=== PATIENT | female | born 1980 | race Caucasian/White ===

== ENCOUNTER 2016-08-22 08:47 | Emergency (ER) | payer OTHER ==
--- NOTE | 2016-08-22 09:44 | ED Physician Documentation ---
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 Review of Systems Constitutional: reports: Fever, Chills, Myalgias, Fatigue Eyes: denies: Decreased vision Ears: denies: Ear pain Nose: denies: Rhinorrhea / runny nose, Congestion Throat: reports: Sore throat Cardiac: denies: Chest pain / pressure, Palpitations Respiratory: denies: Dyspnea, Cough GI: reports: Nausea, Vomiting. denies: Abdominal Pain : denies: Dysuria, Frequency Skin: denies: Rash Musculoskeletal: denies: Neck pain, Back pain, Extremity pain Neurologic: reports: Generalized weakness. denies: Focal weakness, Numbness PD PAST MEDICAL HISTORY - Past Medical History Past Medical History: Yes Respiratory: Asthma - Past Surgical History Past Surgical History: Yes General: Cholecystectomy - Present Medications Home Medications: Ambulatory Orders Medication Instructions Recorded Confirmed Vit Calc,Iron,Folic 1 tab PO DAILY 08/22/16 08/22/16 [ Vitamins] - Allergies Allergies/Adverse Reactions: Allergies Allergy/AdvReac Type Severity Reaction Status Date / Time No Known Drug Allergies Allergy Verified 08/22/16 08:52 - Social History Does the pt smoke?: No Smoking Status: Never smoker Does the pt drink ETOH?: No Does the pt have substance abuse?: No PD ED PE NORMAL - Vitals Vital signs reviewed: Yes (normal ) - General General: Alert and oriented X 3, Well developed/nourished, Other (The patient is in tears not feeling well ) - HEENT HEENT: Atraumatic, PERRL, EOMI, Ears normal, Other (mucous membranes are dry. The tonsils are with minimal inflamation and no exudate. ) - Neck Neck: Supple, no meningeal sign, No bony TTP - Cardiac Cardiac: RRR, No murmur - Respiratory Respiratory: No respiratory distress, Clear bilaterally - Abdomen Abdomen: Soft, Non tender - Back Back: No CVA TTP, No spinal TTP - Derm Derm: Normal color, Warm and dry, No rash - Extremities Extremities: No deformity, No edema - Neuro Neuro: No motor deficit, No sensory deficit, Normal speech Results - Vitals Vitals: Vital Signs - 24 hr 08/22/16 08/22/16 08/22/16 08:50 12:02 14:09 Temperature 36.1 C L 37.1 C 36.3 C L Heart Rate 78 86 111 H Respiratory 18 20 20 Rate Blood Pressure 99/71 94/55 L 117/72 O2 Saturation 99 100 100 Oxygen O2 Source Room air - Labs Labs: Laboratory Tests 08/22/16 08/22/16 08/22/16 10:00 10:00 10:00 WBC 9.7 RBC 5.19 Hgb 15.3 Hct 44.8 MCV 86.3 MCH 29.5 MCHC 34.2 RDW 12.0 Plt Count 214 MPV 7.6 L Neut # 8.3 H Lymph # 1.0 L [place] # 0.4 Eos # 0.0 Baso # 0.0 Absolute Nucleated RBC 0.00 Nucleated RBCs 0.0 Sodium 136 Potassium 3.6 Chloride 103 Carbon Dioxide 23 Anion Gap 10.0 BUN 12 Creatinine 0.5 Estimated GFR (MDRD) 138 Glucose 84 Calcium 9.5 Total Bilirubin 1.2 H AST 22 ALT 22 Alkaline Phosphatase 55 Total Protein 8.5 H Albumin 4.6 Globulin 3.9 Albumin/Globulin Ratio 1.2 Lipase 22 Urine Color Urine Clarity Urine pH Ur Specific [place] Urine Protein Urine Glucose (UA) Urine Ketones Urine Occult Blood Urine Nitrite Urine Bilirubin Urine Urobilinogen Ur Leukocyte Esterase Urine RBC Urine WBC Ur Squamous Epith Cells Urine Bacteria Ur Microscopic Review Urine Culture Comments Infectious [place] Assay NEGATIVE Group A Strep Rapid 08/22/16 08/22/16 11:12 11:15 WBC RBC Hgb Hct MCV MCH MCHC RDW Plt Count MPV Neut # Lymph # [place] # Eos # Baso # Absolute Nucleated RBC Nucleated RBCs Sodium Potassium Chloride Carbon Dioxide Anion Gap BUN Creatinine Estimated GFR (MDRD) Glucose Calcium Total Bilirubin AST ALT Alkaline Phosphatase Total Protein Albumin Globulin Albumin/Globulin Ratio Lipase Urine Color DARK YELLOW Urine Clarity CLEAR Urine pH 6.5 Ur Specific [place] 1.020 Urine Protein 30 H Urine Glucose (UA) NEGATIVE Urine Ketones >=80 H Urine Occult Blood TRACE-INTA Urine Nitrite NEGATIVE Urine Bilirubin NEGATIVE Urine Urobilinogen 0.2 (NORMAL) Ur Leukocyte Esterase NEGATIVE Urine RBC 0-5 Urine WBC 0-3 Ur Squamous Epith Cells MOD Squamous H Urine Bacteria Moderate H Ur Microscopic Review INDICATED Urine Culture Comments NOT INDICATED Infectious [place] Assay Group A Strep Rapid Negative Procedures - IVC sono (time) 0940 Bedside IVC sono: IVC measures (cm) (1.14), IVC collapsed c insp (cm) (complete) , Dehydration PD MEDICAL DECISION MAKING - ED course Complexity details: reviewed results, re-evaluated patient, considered differential, d/w patient ED course: 36-year-old female 12 weeks with sore throat aches and weakness. She has had nausea and vomiting and rapid strep is negative examination of the oropharynx and ears is unremarkable and she does appear dehydrated on interrogation of the inferior vena cava. Here in the emergency department she is administered 2 L of normal saline a Monospot is negative as is a repeat strep screen. Departure - Departure Disposition: 01 Home, Self Care Clinical Impression: Dehydration Condition: Stable Instructions: ED Dehydration Follow-Up: Your, doctor [Other] Discharge Date/Time: 08/22/16 14:10
[2016-08-22] MEDS ORDERED: SODIUM CHLORIDE 0.9% 1,000 ML IV ONE ×2 (09:47→12:56)
[2016-08-22 10:12] LABS: BASOPHILS % (AUTO) 0.4 %; EOSINOPHILS % (AUTO) 0.2 %; HCT - HEMATOCRIT 44.8 % (37.0-47.0); HGB - HEMOGLOBIN 15.3 g/dL (12.0-16.0); MEAN CORPUSCULAR HEMOGLOBIN 29.5 pg (27.0-31.0); MEAN CORPUSCULAR HGB CONC 34.2 g/dL (32.0-36.0); MEAN CORPUSCULAR VOLUME 86.3 fL (81.0-99.0); MEAN PLATELET VOLUME 7.6 fL (7.9-10.8); MONOCYTES # (AUTO) 0.4 10^3/uL (0.0-1.0); MONOCYTES % (AUTO) 3.7 %; NEUTROPHILS # (AUTO) 8.3 10^3/uL (1.5-6.6); NEUTROPHILS % (AUTO) 85.7 %; RED BLOOD COUNT 5.19 10^6/uL (4.20-5.40); UNCORRECTED WHITE BLOOD COUNT 9.7 x10^3/uL; WHITE BLOOD COUNT 9.7 x10^3/uL (4.8-10.8)
[2016-08-22 10:29] LABS: ALBUMIN/GLOBULIN RATIO 1.2 (1.0-2.2); BILIRUBIN,TOTAL 1.2 mg/dL (0.2-1.0); CALCIUM 9.5 mg/dL (8.5-10.3); CREATININE 0.5 mg/dL (0.4-1.0); POTASSIUM 3.6 mmol/L (3.5-5.0); TOTAL PROTEIN 8.5 g/dL (6.7-8.2)
[2016-08-22 10:42] LABS: MONO NEG QC NEGATIVE (Negative); MONO POS QC POSITIVE (Positive)
[2016-08-22 11:26] LABS: PH,URINE 6.5 PH (5.0-7.5)
[2016-08-22 11:33] LABS: BILIRUBIN,URINE NEGATIVE (NEGATIVE); UA w/ MICROSCOPIC CHARGE YES
[2016-08-22 11:41] LABS: UR CULTURE IF IND NOT INDICATED; WBC,URINE 0-3 /HPF (0-5)
[2016-08-22 11:45] LABS: RAPID STREP SCREEN REAGENT QC YELLOW (YELLOW)
[2016-08-22 14:09] VITALS: BP 117/72
== END 2016-08-22 14:10 | disposition home or self-care (01) ==
LOC: ED 08:47
DX: O99.281 Endocrine, nutritional and metabolic diseases complicating pregnancy, first trimester (principal); E86.0 Dehydration; O99.511 Diseases of the respiratory system complicating pregnancy, first trimester; J02.9 Acute pharyngitis, unspecified; Z3A.12 12 weeks gestation of pregnancy
CPT/HCPCS: 36415; 80053; 81001; 81003; 83690; 85025; 86308; 87070; 87086; 87430; 96360; 96361; 99284

== ENCOUNTER 2016-08-30 22:00 | Emergency (ER) | payer OTHER ==
[2016-08-30 22:28] LABS: BILIRUBIN,URINE NEGATIVE (NEGATIVE); PH,URINE 6.5 PH (5.0-7.5)
[2016-08-30 22:29] LABS: UA CHARGE (STRIP ONLY) YES; UR CULTURE IF IND NOT INDICATED
[2016-08-30] MEDS ORDERED: ONDANSETRON 4 MG/2 ML VIAL ONE (22:42)
[2016-08-30] MEDS ORDERED: SODIUM CHLORIDE 0.9% 1,000 ML IV ONE ×2 (22:42→23:14)
[2016-08-30 22:51] LABS: BASOPHILS % (AUTO) 0.6 %; EOSINOPHILS # (AUTO) 0.1 10^3/uL (0.0-0.7); EOSINOPHILS % (AUTO) 0.9 %; HCT - HEMATOCRIT 39.5 % (37.0-47.0); HGB - HEMOGLOBIN 13.8 g/dL (12.0-16.0); LYMPHOCYTES # (AUTO) 1.8 10^3/uL (1.5-3.5); LYMPHOCYTES % (AUTO) 22.4 %; MEAN CORPUSCULAR HGB CONC 34.9 g/dL (32.0-36.0); MEAN CORPUSCULAR VOLUME 85.9 fL (81.0-99.0); MEAN PLATELET VOLUME 7.9 fL (7.9-10.8); MONOCYTES # (AUTO) 0.6 10^3/uL (0.0-1.0); MONOCYTES % (AUTO) 7.3 %; NEUTROPHILS # (AUTO) 5.6 10^3/uL (1.5-6.6); NEUTROPHILS % (AUTO) 68.8 %; RED BLOOD COUNT 4.59 10^6/uL (4.20-5.40); RED CELL DISTRIBUTION WIDTH 11.8 % (12.0-15.0); UNCORRECTED WHITE BLOOD COUNT 8.2 x10^3/uL; WHITE BLOOD COUNT 8.2 x10^3/uL (4.8-10.8)
[2016-08-30 23:00] LABS: ALBUMIN/GLOBULIN RATIO 1.2 (1.0-2.2); BILIRUBIN,TOTAL 0.8 mg/dL (0.2-1.0); CREATININE 0.4 mg/dL (0.4-1.0); POTASSIUM 3.2 mmol/L (3.5-5.0)
--- NOTE | 2016-08-30 23:03 | ED Physician Documentation ---
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 She has not been able to hold anything down for the past 2 days. Review of Systems Constitutional: denies: Fever, Chills Eyes: denies: Decreased vision Ears: denies: Ear pain Nose: denies: Rhinorrhea / runny nose, Congestion Throat: denies: Sore throat Cardiac: denies: Chest pain / pressure, Palpitations Respiratory: denies: Dyspnea, Cough GI: reports: Nausea, Vomiting, Diarrhea. denies: Abdominal Pain : denies: Dysuria, Frequency Skin: denies: Rash Musculoskeletal: denies: Neck pain, Back pain PD PAST MEDICAL HISTORY - Past Medical History Respiratory: Asthma - Past Surgical History Past Surgical History: Yes General: Cholecystectomy - Present Medications Home Medications: Ambulatory Orders Medication Instructions Recorded Confirmed Vit Calc,Iron,Folic 1 tab PO DAILY 08/22/16 08/30/16 [ Vitamins] - Allergies Allergies/Adverse Reactions: Allergies Allergy/AdvReac Type Severity Reaction Status Date / Time No Known Drug Allergies Allergy Verified 08/30/16 22:08 - Social History Does the pt smoke?: No Smoking Status: Never smoker Does the pt drink ETOH?: No Does the pt have substance abuse?: No PD ED PE NORMAL - Vitals Vital signs reviewed: Yes (Tachycardic) - General General: Alert and oriented X 3, No acute distress, Well developed/nourished - HEENT HEENT: Atraumatic, PERRL, EOMI - Neck Neck: Supple, no meningeal sign - Cardiac Cardiac: RRR, No murmur, No gallop - Respiratory Respiratory: No respiratory distress, Clear bilaterally - Abdomen Abdomen: Soft, Non tender - Back Back: No CVA TTP, No spinal TTP - Derm Derm: Normal color, Warm and dry, No rash - Extremities Extremities: No deformity, No edema - Neuro Neuro: Alert and oriented X 3, No motor deficit, No sensory deficit, Normal speech - Psych Psych: Normal mood, Normal affect Results - Vitals Vitals: Vital Signs - 24 hr 08/30/16 08/30/16 08/30/16 22:05 23:19 23:46 Temperature 36.3 C L Heart Rate 109 H 74 91 Respiratory 15 14 16 Rate Blood Pressure 101/69 91/50 L 95/45 L O2 Saturation 100 100 100 08/31/16 00:33 Temperature Heart Rate 88 Respiratory 18 Rate Blood Pressure 95/54 L O2 Saturation 100 Oxygen O2 Source Room air - Labs Labs: Laboratory Tests 08/30/16 08/30/16 08/30/16 22:20 22:40 22:40 WBC 8.2 RBC 4.59 Hgb 13.8 Hct 39.5 MCV 85.9 MCH 30.0 MCHC 34.9 RDW 11.8 L Plt Count 206 MPV 7.9 Neut # 5.6 Lymph # 1.8 [place] # 0.6 Eos # 0.1 Baso # 0.0 Absolute Nucleated RBC 0.00 Nucleated RBCs 0.0 Sodium 135 Potassium 3.2 L Chloride 104 Carbon Dioxide 23 Anion Gap 8.0 BUN 9 Creatinine 0.4 Estimated GFR (MDRD) 179 Glucose 94 Calcium 9.0 Total Bilirubin 0.8 AST 19 ALT 18 Alkaline Phosphatase 51 Total Protein 7.0 Albumin 3.8 Globulin 3.2 Albumin/Globulin Ratio 1.2 Lipase 26 Urine Color YELLOW Urine Clarity CLEAR Urine pH 6.5 Ur Specific [place] 1.020 Urine Protein TRACE Urine Glucose (UA) NEGATIVE Urine Ketones >=80 H Urine Occult Blood TRACE-[place] Urine Nitrite NEGATIVE Urine Bilirubin NEGATIVE Urine Urobilinogen 0.2 (NORMAL) Ur Leukocyte Esterase NEGATIVE Ur Microscopic Review NOT INDICATED Urine Culture Comments NOT INDICATED Procedures - Bedside sono Bedside sono by EMP: with the use of bedside ultrasound a viable fetus with FHR of 160 and BPD measured to 13wks 5 days. - IVC sono (time) 2250 Bedside IVC sono: IVC measures (cm) (1.71), IVC collapsed c insp (cm) (1.24), Euvolemia PD MEDICAL DECISION MAKING - ED course Complexity details: reviewed old records, reviewed results, re-evaluated patient , considered differential, d/w patient, d/w family ED course: 36-year-old female is 13.5 weeks and has uncontrolled vomiting. She is administered intravenous Zofran and a liter of saline. She felt improved and was discharged to home to followup with Mariya Pride. Departure - Departure Disposition: 01 Home, Self Care Clinical Impression: Hyperemesis gravidarum, Hypokalemia Condition: Stable Instructions: ED Preg Morning Sickness, ED Diet High Potassium Follow-Up: Mariya Pride, MANDO [Primary Care Provider] - Discharge Date/Time: 08/31/16 00:38
[2016-08-30] MEDS ORDERED: ONDANSETRON 4 MG/2 ML VIAL IVP STA (23:14)
[2016-08-30] MEDS ORDERED: POTASSIUM BICARB 25 MEQ TABLET PO STA (23:58)
[2016-08-31] MEDS ORDERED: POTASSIUM BICARB 25 MEQ TABLET PO ONE (00:23)
[2016-08-31 00:35] VITALS: BP 95/54
== END 2016-08-31 00:38 | disposition home or self-care (01) ==
LOC: ED 22:00
DX: O21.0 Mild hyperemesis gravidarum (principal); O26.891 Other specified pregnancy related conditions, first trimester; E87.6 Hypokalemia; Z3A.13 13 weeks gestation of pregnancy
CPT/HCPCS: 36415; 80053; 81003; 83690; 85025; 96374; 99284; A9270; 81001; 87086

== ENCOUNTER 2016-09-02 20:38 | Emergency (ER) | payer OTHER ==
--- NOTE | 2016-09-02 21:00 | ED Physician Documentation ---
PD HPI NVD - Stated complaint Stated Complaint: NAUSEA/VOMITING - Chief complaint Chief Complaint: Abd Pain - History obtained from History obtained from: Patient - History of Present Illness Timing - onset: How many weeks ago (has had lots of nausea with and has had worse symptoms the past week or so. Has been to ED just few days ago for IV fluids and improved. She is taking B-6 and Doxylamine PRN nausea. Has zofran ODT and has some Promethazine suppos. These were ineffective the past several days. No hematemesis.) Timing - duration: Days, Weeks Timing - details: Gradual onset, Waxing and waning Associated symptoms: Loss of appetite. No: Fever, Chest pain, Hematemesis, Weight loss Contributing factors: No: Sick contact, Bad food, Travel, Recent antibiotics, Alcohol use Improved by: No: Eating, Vomiting Worsened by: Eating Recently seen: Clinic, Emergency Dept Review of Systems Constitutional: denies: Fever Nose: denies: Rhinorrhea / runny nose, Congestion Throat: denies: Sore throat Cardiac: denies: Chest pain / pressure, Palpitations Respiratory: denies: Dyspnea, Cough GI: reports: Nausea, Vomiting. denies: Abdominal Pain, Constipation, Diarrhea, Hematemesis : denies: Dysuria, Frequency Neurologic: reports: Generalized weakness. denies: Focal weakness, Numbness, Near syncope PD PAST MEDICAL HISTORY - Past Medical History Respiratory: Asthma - Past Surgical History Past Surgical History: Yes General: Cholecystectomy - Present Medications Home Medications: Ambulatory Orders Medication Instructions Recorded Confirmed Vit Calc,Iron,Folic 1 tab PO DAILY 08/22/16 08/30/16 [ Vitamins] Famotidine [Pepcid] 20 mg PO ONCE #30 tablet 09/02/16 Ondansetron Odt [Zofran] 4 mg TL Q6H PRN 09/02/16 09/02/16 - Allergies Allergies/Adverse Reactions: Allergies Allergy/AdvReac Type Severity Reaction Status Date / Time No Known Drug Allergies Allergy Verified 08/30/16 22:08 - Social History Does the pt smoke?: No Smoking Status: Never smoker Does the pt drink ETOH?: No Does the pt have substance abuse?: No PD ED PE NORMAL - Vitals Vital signs reviewed: Yes - General General: Alert and oriented X 3, No acute distress, Well developed/nourished - HEENT HEENT: Pharynx benign. No: Moist mucous membranes - Neck Neck: Supple, no meningeal sign, No adenopathy - Cardiac Cardiac: RRR, No murmur - Respiratory Respiratory: Clear bilaterally - Abdomen Abdomen: Normal bowel sounds, Soft, Non tender, Non distended, No organomegaly, Other (gravid with fundus above pubis. Not tender. She declines bedside U/S to evaluate FHR. ) Results - Vitals Vitals: Vital Signs - 24 hr 09/02/16 09/02/16 20:43 23:26 Temperature 37.0 C Heart Rate 109 H 99 Respiratory 16 18 Rate Blood Pressure 118/71 103/69 O2 Saturation 100 100 Oxygen O2 Source Room air - Labs Labs: Laboratory Tests 09/02/16 21:45 Sodium 135 Potassium 3.3 L Chloride 105 Carbon Dioxide 24 Anion Gap 6.0 BUN 8 Creatinine 0.4 Estimated GFR (MDRD) 179 Glucose 82 Calcium 8.9 Magnesium 1.9 Total Bilirubin 0.3 AST 17 ALT 16 Alkaline Phosphatase 44 Total Protein 6.6 L Albumin 3.7 Globulin 2.9 Albumin/Globulin Ratio 1.3 Lipase 23 PD MEDICAL DECISION MAKING - ED course Complexity details: re-evaluated patient (feeling better with fluids and meds. ) , considered differential (has had related N/V and this is worse the past week. Presume some element of gastritis related to the vomiting now and will add H2 haritha for few weeks. Have her take the B-6 BID regularly and not PRN. ), d/w patient Departure - Departure Disposition: 01 Home, Self Care Clinical Impression: Dehydration, Hyperemesis gravidarum Gastritis Qualifiers: Gastritis type: unspecified gastritis Chronicity: acute Gastritis bleeding: without bleeding Qualified Code(s): K29.00 - Acute gastritis without bleeding Condition: Stable Record reviewed to determine appropriate education?: Yes Instructions: ED Nausea Vomiting, ED Gastritis Follow-Up: Mariya Pride LMW [Primary Care Provider] - Prescriptions: Famotidine [Pepcid] 20 mg PO ONCE #30 tablet Comments: Continue your B-6 and I would suggest taking regularly twice daily for the next month. Also add Famotidine acid reduction medication daily for a month. Continue your anti-emetic medications as needed. Small frequent fluids. Discharge Date/Time: 09/02/16 23:40
[2016-09-02] MEDS ORDERED: FAMOTIDINE 20 MG/50 ML 50 ML IV ONE (21:09)
[2016-09-02] MEDS ORDERED: ONDANSETRON 4 MG/2 ML VIAL IVP STA ×2 (21:09→22:32)
[2016-09-02] MEDS ORDERED: SODIUM CHLORIDE 0.9% 1,000 ML IV ONE ×2 (21:09)
[2016-09-02] MEDS ORDERED: FAMOTIDINE 20 MG/50 ML 0 ML IV ONE (21:10)
[2016-09-02] MEDS ORDERED: ONDANSETRON 4 MG/2 ML VIAL ONE ×2 (21:10→22:30)
[2016-09-02 22:05] LABS: ALBUMIN/GLOBULIN RATIO 1.3 (1.0-2.2); BILIRUBIN,TOTAL 0.3 mg/dL (0.2-1.0); CALCIUM 8.9 mg/dL (8.5-10.3); CREATININE 0.4 mg/dL (0.4-1.0); MAGNESIUM 1.9 mg/dL (1.7-2.8); POTASSIUM 3.3 mmol/L (3.5-5.0); TOTAL PROTEIN 6.6 g/dL (6.7-8.2)
[2016-09-02 23:26] VITALS: BP 103/69
== END 2016-09-02 23:40 | disposition home or self-care (01) ==
LOC: ED 20:38
DX: O21.1 Hyperemesis gravidarum with metabolic disturbance (principal); Z3A.00 Weeks of gestation of pregnancy not specified; O26.899 Other specified pregnancy related conditions, unspecified trimester; K29.00 Acute gastritis without bleeding
CPT/HCPCS: 36415; 80053; 83690; 83735; 96361; 96374; 99283; 99284

== ENCOUNTER 2016-09-04 16:23 | Observation (INO) | payer OTHER ==
[2016-09-04] MEDS ORDERED: SODIUM CHLORIDE FLUSH 0.9% 10 ML SYRINGE IVP ONE (16:25)
[2016-09-04] MEDS ORDERED: LACTATED RINGERS 1,000 ML IV ONE ×2 (16:26→17:14)
[2016-09-04] MEDS ORDERED: DOXYLAMINE 25 MG TABLET PO PRN (17:10)
[2016-09-04] MEDS ORDERED: ONDANSETRON 4 MG/2 ML VIAL IVP PRN (17:11)
[2016-09-04 18:08] LABS: BASOPHILS # (AUTO) 0.1 10^3/uL (0.0-0.1); BASOPHILS % (AUTO) 0.7 %; EOSINOPHILS # (AUTO) 0.1 10^3/uL (0.0-0.7); EOSINOPHILS % (AUTO) 0.5 %; HCT - HEMATOCRIT 44.9 % (37.0-47.0); HGB - HEMOGLOBIN 15.3 g/dL (12.0-16.0); LYMPHOCYTES # (AUTO) 1.3 10^3/uL (1.5-3.5); LYMPHOCYTES % (AUTO) 12.5 %; MEAN CORPUSCULAR HEMOGLOBIN 29.7 pg (27.0-31.0); MEAN CORPUSCULAR HGB CONC 34.1 g/dL (32.0-36.0); MONOCYTES # (AUTO) 0.5 10^3/uL (0.0-1.0); MONOCYTES % (AUTO) 5.2 %; NEUTROPHILS # (AUTO) 8.4 10^3/uL (1.5-6.6); NEUTROPHILS % (AUTO) 81.1 %; NUCLEATED RED BLOOD CELLS AUTO 0.1 /100WBC; RED BLOOD COUNT 5.17 10^6/uL (4.20-5.40); RED CELL DISTRIBUTION WIDTH 11.7 % (12.0-15.0); UNCORRECTED WHITE BLOOD COUNT 10.3 x10^3/uL; WHITE BLOOD COUNT 10.3 x10^3/uL (4.8-10.8)
[2016-09-04 18:14] LABS: ALBUMIN/GLOBULIN RATIO 1.2 (1.0-2.2); BILIRUBIN,TOTAL 0.4 mg/dL (0.2-1.0); CALCIUM 9.1 mg/dL (8.5-10.3); CREATININE 0.4 mg/dL (0.4-1.0); POTASSIUM 3.4 mmol/L (3.5-5.0); TOTAL PROTEIN 7.2 g/dL (6.7-8.2)
[2016-09-04 18:56] LABS: BILIRUBIN,URINE NEGATIVE (NEGATIVE)
[2016-09-04 18:59] LABS: UA w/ MICROSCOPIC CHARGE YES
[2016-09-04 19:14] LABS: UR CULTURE IF IND NOT INDICATED
[2016-09-04] MEDS: MULTIVITAMIN 10 ML, THIAMINE INJ 100 MG, FOLIC ACID INJ 1 MG, POTASSIUM CHLORIDE INJ 20... IV SCH ×5 (19:32)
--- NOTE | 2016-09-04 19:47 | Ultrasound Preliminary Report ---
Exam: US OB Limited IMPRESSION: Single live intrauterine gestation. Estimated sonographic age 14 weeks 3 days. hear t rate is 154 bpm. [facility] SITE ID: [id number]
--- NOTE | 2016-09-04 19:50 | Ultrasound Report ---
EXAM: THIRD TRIMESTER OBSTETRIC ULTRASOUND EXAM DATE: 09/04/2016 06:49 PM. CLINICAL HISTORY: 14 weeks with hyperemesis . LMP 05/28/2016 COMPARISON: None. TECHNIQUE: Real-time scanning performed with static images. Both color-flow and Doppler technology we re utilized. FINDINGS: Fetus: Single live intrauterine gestation. Presentation: Transverse. Heart Rate: 154 beats per minute. Placenta: Anterior position. No placenta previa or abruption. Amniotic Fluid Index (KOSTA): Within normal limits. Biometry: Bi-parietal diameter (BPD): 2.7 cm = 14.7 weeks. Head circumference (HC): 9.9 cm = 14.6 weeks. Abdominal circumference (AC): 7.9 cm = 14.3 weeks. Femur length (FL): 1.4 cm = 14.3 weeks. Dates: Composite gestational age (this exam): 14 weeks 3 days. Anatomic Survey: A complete survey was not performed on this exam. Maternal Structures: Cervix: Long and closed. Uterus/adnexa: Unremarkable. IMPRESSION: Single live intrauterine gestation. Estimated sonographic age 14 weeks 3 days. hear t rate is 154 bpm. [facility] Referring Provider Line: [phone] SITE ID: [id number]
[2016-09-04 20:20] LABS: THYROID STIMULATING HORMONE < 0.08 uIU/mL (0.34-5.60)
[2016-09-05] MEDS: POTASSIUM CHLORIDE INJ 20 MEQ in DEXTROSE 5%-LACTATED RINGERS 1,000 ML IV SCH ×2 (03:30→07:50)
--- NOTE | 2016-09-05 07:43 | HISTORY & PHYSICAL EXAMINATION ---
DATE OF ADMISSION: 09/04/2016 IDENTIFICATION: The patient is a 36-year-old G6, P2, AB3 female whose LMP was 25 May, making her 14 weeks and 4 days. CHIEF COMPLAINT: Nausea and vomiting. HISTORY OF PRESENT ILLNESS: The patient states that she was doing well during this up until about 10 weeks 4 days EGA. She developed nausea and vomiting and has had difficulty keeping any food or fluids down. She has made 3 visits to the emergency department for this. She had been treated wit h IV fluids. She has been tried on Zofran, Phenergan. She states the Unisom has helped the most. She denies any diarrhea or any other family members with any similar symptoms. She has had an ultrasound which showed a killian intrauterine . She has lost 10 pounds during her secondar y to her nausea and vomiting. She has had some constipation, as well as diarrhea alternating. She den ies any travel to any other areas. She has had morning sickness with one previous miscarriage which s he spontaneously miscarried at 11 weeks EGA. PAST MEDICAL HISTORY: The patient denies any diabetic, hypertension, cardiac or pulmonary disease. SURGICAL HISTORY: Positive for a cholecystectomy at 8 months of age. ALLERGIES: NONE KNOWN. CURRENT MEDICATIONS: None. She has been unable to keep her vitamins down. HABITS: The patient denies use of alcohol, tobacco or street or addictive drugs. OB HISTORY: 1. First spontaneous miscarriage at 11 weeks which was complicated with hyperemesis. 2. Spontaneous miscarriage at 5 to 6 weeks. 3. Live male delivery at 39 weeks without hyperemesis. 4. Spontaneous miscarriage at 4 to 6 weeks. 5. Live female delivery at 39 weeks. No hyperemesis. PHYSICAL EXAMINATION: The patient is a well-developed, well-nourished white female. She appears very miserable at this time. Her skin is dry, as well as her mucous membranes. VITAL SIGNS: Her vital signs lying down, blood pressure 114/68 with pulse of 90, respirations of 20 s itting, blood pressure 105/76, and standing 114/73. HEENT: Pupils were equal, round. Extraocular muscles are intact. There is no evidence of any scleral icterus. Mouth shows dry mucous membranes with lips being dried and cracked. HEART: Regular rate and rhythm, without murmurs. LUNGS: Lung woodard are clear without rales or wheezes. ABDOMEN: Soft, nontender, without evidence of any organomegaly. Bowel sounds are noted. IMPRESSION: 1. A 36-year-old G6, P2, AB3 female, 14 weeks estimated gestational age. 2. Severe hyperemesis gravidarum. Her last potassium in the hospital was 3.2. PLAN: Will admit, IV hydrate. Will give her Zofran and Phenergan for her hyperemesis gravidarum. Will also utilize Unisom. Will give her a liter of LR, follow with a liter of D5LR followed with a liter of dextrose with a banana bag. JOB #: [id number] EXT JOB #:[id number]
[2016-09-05] MEDS: PROMETHAZINE 25 MG SUPP PR PRN ×2 (08:34→18:12)
--- NOTE | 2016-09-05 08:39 | PROVIDER PROGRESS NOTE ---
Subjective - Prog Note Date Prog Note Date: 09/05/16 Prog Note Time: 08:35 - Subjective Pt reports feeling: Improved (Pt is still having nausia but the last dose was 2300 Zofran.) Subjective: IV line infeltrated this AM. pt is still nausiated. pt will still need fluids and meds. Objective - Vital Signs/Intake & Output Reviewed Vital Signs: Yes Vital Signs: Vital Signs x48h Temp Pulse Resp BP Pulse Ox 09/05/16 05:00 36.5 C 89 15 92/50 L 99 09/05/16 01:07 36.3 C L 75 16 97/59 L 100 Intake & Output: Intake & Output 09/02/16 09/03/16 09/04/16 09/05/16 23:59 23:59 23:59 23:59 Intake Total 990 Balance 990 - Objective General Appearance: positive: Alert, Mild distress Respiratory: positive: Chest non-tender, No respiratory distress, Breath sounds nml Cardiovascular: positive: Regular rate & rhythm, No murmur, No gallop Abdomen: positive: Non-tender, No organomegaly, Nml bowel sounds, No distention Extremities: positive: Non-tender. negative: Calf tenderness, Lore's sign/ cords - Lab Results Fish Bones: 09/04/16 17:52 09/04/16 17:52 Other Labs: Lab Results x24hrs 09/04/16 09/04/16 09/04/16 Range/Units 18:45 17:52 17:52 WBC (4.8-10.8) x10^3/uL RBC (4.20-5.40) 10^6/uL Hgb (12.0-16.0) g/dL Hct (37.0-47.0) % MCV (81.0-99.0) fL MCH (27.0-31.0) pg MCHC (32.0-36.0) g/dL RDW (12.0-15.0) % Plt Count (130-450) 10^3/uL MPV (7.9-10.8) fL Neut # (1.5-6.6) 10^3/uL Lymph # (1.5-3.5) 10^3/uL [place] # (0.0-1.0) 10^3/uL Eos # (0.0-0.7) 10^3/uL Baso # (0.0-0.1) 10^3/uL Absolute Nucleated RBC x10^3/uL Nucleated RBCs /100WBC Sodium (135-145) mmol/L Potassium (3.5-5.0) mmol/L Chloride (101-111) mmol/L Carbon Dioxide (21-32) mmol/L Anion Gap (6-13) BUN (6-20) mg/dL Creatinine (0.4-1.0) mg/dL Estimated GFR (MDRD) (>89) Glucose (70-100) mg/dL Calcium (8.5-10.3) mg/dL Total Bilirubin (0.2-1.0) mg/dL AST (10-42) IU/L ALT (10-60) IU/L Alkaline Phosphatase (42-121) IU/L Total Protein (6.7-8.2) g/dL Albumin (3.2-5.5) g/dL Globulin (2.1-4.2) g/dL Albumin/Globulin Ratio (1.0-2.2) TSH (0.34-5.60) uIU/mL Free T4 (0.58-1.64) ng/dL HCG, Quant 314859.00 mIU/mL Urine Color YELLOW Urine Clarity HAZY (CLEAR) Urine pH 6.0 (5.0-7.5) PH Ur Specific [place] 1.025 (1.002-1.030) Urine Protein 30 H (NEGATIVE) mg/dL Urine Glucose (UA) NEGATIVE (NEGATIVE) mg/dL Urine Ketones >=80 H (NEGATIVE) mg/dL Urine Occult Blood NEGATIVE (NEGATIVE) Urine Nitrite NEGATIVE (NEGATIVE) Urine Bilirubin NEGATIVE (NEGATIVE) Urine Urobilinogen 0.2 (NORMAL) (NORMAL) E.U./dL Ur Leukocyte Esterase NEGATIVE (NEGATIVE) Urine RBC 0-5 (0-5) /HPF Urine WBC 4-5 (0-5) /HPF Ur Squamous Epith Cells FEW Squamous (<= Few) Urine Bacteria Rare (None Seen) /HPF Ur Microscopic Review INDICATED Urine Culture Comments NOT INDICATED Blood Type A POSITIVE 09/04/16 09/04/16 09/04/16 Range/Units 17:52 17:52 17:52 WBC 10.3 (4.8-10.8) x10^3/uL RBC 5.17 (4.20-5.40) 10^6/uL Hgb 15.3 (12.0-16.0) g/dL Hct 44.9 (37.0-47.0) % MCV 87.0 (81.0-99.0) fL MCH 29.7 (27.0-31.0) pg MCHC 34.1 (32.0-36.0) g/dL RDW 11.7 L (12.0-15.0) % Plt Count 213 (130-450) 10^3/uL MPV 8.0 (7.9-10.8) fL Neut # 8.4 H (1.5-6.6) 10^3/uL Lymph # 1.3 L (1.5-3.5) 10^3/uL [place] # 0.5 (0.0-1.0) 10^3/uL Eos # 0.1 (0.0-0.7) 10^3/uL Baso # 0.1 (0.0-0.1) 10^3/uL Absolute Nucleated RBC 0.01 x10^3/uL Nucleated RBCs 0.1 /100WBC Sodium 136 (135-145) mmol/L Potassium 3.4 L (3.5-5.0) mmol/L Chloride 104 (101-111) mmol/L Carbon Dioxide 23 (21-32) mmol/L Anion Gap 9.0 (6-13) BUN 9 (6-20) mg/dL Creatinine 0.4 (0.4-1.0) mg/dL Estimated GFR (MDRD) 179 (>89) Glucose 82 (70-100) mg/dL Calcium 9.1 (8.5-10.3) mg/dL Total Bilirubin 0.4 (0.2-1.0) mg/dL AST 17 (10-42) IU/L ALT 17 (10-60) IU/L Alkaline Phosphatase 52 (42-121) IU/L Total Protein 7.2 (6.7-8.2) g/dL Albumin 3.9 (3.2-5.5) g/dL Globulin 3.3 (2.1-4.2) g/dL Albumin/Globulin Ratio 1.2 (1.0-2.2) TSH < 0.08 L (0.34-5.60) uIU/mL Free T4 2.89 H (0.58-1.64) ng/dL HCG, Quant mIU/mL Urine Color Urine Clarity (CLEAR) Urine pH (5.0-7.5) PH Ur Specific [place] (1.002-1.030) Urine Protein (NEGATIVE) mg/dL Urine Glucose (UA) (NEGATIVE) mg/dL Urine Ketones (NEGATIVE) mg/dL Urine Occult Blood (NEGATIVE) Urine Nitrite (NEGATIVE) Urine Bilirubin (NEGATIVE) Urine Urobilinogen (NORMAL) E.U./dL Ur Leukocyte Esterase (NEGATIVE) Urine RBC (0-5) /HPF Urine WBC (0-5) /HPF Ur Squamous Epith Cells (<= Few) Urine Bacteria (None Seen) /HPF Ur Microscopic Review Urine Culture Comments Blood Type - Diagnostic Imaging Diagnostic Imaging Results: positive: Prelim report reviewed (normal Single IUP) Assessment/Plan - Problem List (1) Hyperemesis gravidarum Impression: Hyperemisis persistent. difficulty with IV access. Received 2550 ml since arrival. Pt was stuck 5 times for labs and fluids. Will place Pic line for IV fluids, labs and mediation.
[2016-09-05] MEDS ORDERED: ONDANSETRON ODT 4 MG TABLET TL PRN (09:19)
--- NOTE | 2016-09-05 12:47 | XRAY Report ---
REVISED: THIS REPORT WAS ORIGINALLY SIGNED ON 09/06/2016 @ 0812. EXAM CODE REVISED ON 09/25/2016. FRONTAL CHEST: 09/05/2016 CLINICAL INDICATION: PICC placement. FINDINGS: Frontal view of the chest demonstrates a right arm PICC terminating in the distal superior vena cava. The lungs are clear. The cardiac silhouette is not enlarged. No effusion or pneumothorax. IMPRESSION: RIGHT ARM PICC TERMINATING IN THE DISTAL SUPERIOR VENA CAVA. JOB #: [id number] EXT JOB #: [id number] [facility]
[2016-09-05] MEDS ORDERED: SODIUM CHLORIDE FLUSH 0.9% 10 ML SYRINGE IVP ONE ×3 (13:00→16:24)
[2016-09-05] MEDS: MULTIVITAMIN 10 ML, THIAMINE INJ 100 MG, FOLIC ACID INJ 1 MG, POTASSIUM CHLORIDE INJ 20... IV SCH ×5 (13:15)
[2016-09-05] MEDS ORDERED: MULTIVITAMIN 10 ML, THIAMINE INJ 100 MG, FOLIC ACID INJ 1 MG, POTASSIUM CHLORIDE INJ 20... IV SCH ×5 (14:21)
[2016-09-05] MEDS ORDERED: POTASSIUM CHLORIDE INJ 20 MEQ in DEXTROSE 5%-LACTATED RINGERS 1,000 ML IV SCH (17:00)
[2016-09-05 17:31] VITALS: BP 104/56
== END 2016-09-05 19:00 | disposition home or self-care (01) ==
LOC: WFO 16:23 → OB 16:26 → WFO 17:52 → OB 17:53
PROVIDERS: ADMIT Obstetrics & Gynecology; ATTEND Obstetrics & Gynecology
PROC: 02HV33Z Insertion of Infusion Device into Superior Vena Cava, Percutaneous Approach (ICD-10-PCS; principal; 2016-09-05)
DX: O21.0 Mild hyperemesis gravidarum (principal); Z3A.14 14 weeks gestation of pregnancy
CPT/HCPCS: 36415; 71010; 76815; 80050; 81001; 84439; 84702; 86900; 86901; 96365; 96366; 96375; A9270; C1751; G0378; J3411; J7120; J8498; Q0162; 81003; 87086

== ENCOUNTER 2016-09-07 18:12 | Emergency (ER) | payer OTHER ==
[2016-09-07] MEDS ORDERED: SODIUM CHLORIDE 0.9% 1,000 ML IV ONE (20:32)
--- NOTE | 2016-09-07 20:46 | ED Physician Documentation ---
History of Present Illness - Stated complaint Stated Complaint: CP - Chief complaint Chief Complaint: Ext Problem - History obtained from History obtained from: Patient - Additonal information Additional information: This patient is a 36-year-old female. She is 6 para 2 AB 3 currently at 14-1/2 weeks. She presents with a complaint of pain in her arm and also in her chest. She also complains of racing heart rate for the past couple days. She has had severe hyperemesis gravidarum during this requiring multiple blood draws and IVs for hydration and subsequently had a PICC line placed on the 10th of this month. She presents today with these complaints. She denies any fever or chills. There is no cough. She denies any abdominal pain dysuria vaginal bleeding or lower abdominal cramping. Review of systems: For pertinent positive and negatives in the review of systems please see history of present illness. Otherwise all other systems have been reviewed and are negative. Dragon disclaimer: Parts of this medical record were created using voice recognition technology. Because of the inherent limitations of this system occasional same sounding word substitutions do occur and persist despite proofreading. Please read the document for context. Review of Systems Ten Systems: 10 systems reviewed and negative Constitutional: denies: Fever, Chills, Myalgias Eyes: denies: Loss of vision, Decreased vision, Photophobia Cardiac: reports: Chest pain / pressure, Palpitations Respiratory: denies: Dyspnea GI: reports: Nausea, Vomiting. denies: Abdominal Pain, Abdominal Swelling : denies: Dysuria, Frequency, Hesitancy Skin: reports: Rash PD PAST MEDICAL HISTORY - Past Medical History Past Medical History: Yes Respiratory: Asthma - Past Surgical History Past Surgical History: Yes General: Cholecystectomy - Present Medications Home Medications: Ambulatory Orders Medication Instructions Recorded Confirmed No Known Home Medications [No 09/07/16 09/07/16 Known Home Medications] - Allergies Allergies/Adverse Reactions: Allergies Allergy/AdvReac Type Severity Reaction Status Date / Time No Known Drug Allergies Allergy Verified 08/30/16 22:08 - Social History Does the pt smoke?: No Smoking Status: Never smoker Does the pt drink ETOH?: No Does the pt have substance abuse?: No PD ED PE NORMAL - General General: Alert and oriented X 3, No acute distress, Other - HEENT HEENT: Atraumatic - Neck Neck: Supple, no meningeal sign - Cardiac Cardiac: RRR, No murmur, Other (Mildly tachycardic) - Respiratory Respiratory: No respiratory distress - Abdomen Abdomen: Normal bowel sounds - Female Female : No: Other - Back Back: No CVA TTP - Derm Derm: Normal color, No rash - Extremities Extremities: No deformity, No tenderness to palpate, Normal ROM s pain - Neuro Neuro: Alert and oriented X 3 Results - Vitals Vitals: Vital Signs - 24 hr 09/07/16 09/07/16 09/07/16 18:19 19:54 22:00 Temperature 37.0 C Heart Rate 118 H 99 94 Respiratory 17 18 18 Rate Blood Pressure 129/79 125/72 116/74 O2 Saturation 100 100 100 Oxygen O2 Source Room air - Labs Labs: Laboratory Tests 09/07/16 09/07/16 20:46 21:40 Free T3 pg/mL 5.44 H Urine Color YELLOW Urine Clarity CLEAR Urine pH 6.0 Ur Specific [place] 1.020 Urine Protein NEGATIVE Urine Glucose (UA) NEGATIVE Urine Ketones NEGATIVE Urine Occult Blood NEGATIVE Urine Nitrite NEGATIVE Urine Bilirubin NEGATIVE Urine Urobilinogen 0.2 (NORMAL) Ur Leukocyte Esterase NEGATIVE Ur Microscopic Review NOT INDICATED Urine Culture Comments NOT INDICATED PD MEDICAL DECISION MAKING - ED course ED course: She is a pleasant 36-year-old female who presents with a complaint of pain at her PICC line site both in the arm and also along the course of her transverses into her chest. She had a PICC line placed for hyperemesis gravidarum and the need for frequent blood draws and IV hydration. Patient was initially mildly tachycardic and initial presentation with a heart rate of 112. Her EKG showed sinus tachycardia with a normal NE, QRS, QT interval without ST segment elevation depression or T-wave inversion. Chest x-ray shows no acute intrathoracic disease with a normal PICC line without evidence of pneumo or hydrothorax. The patient's labs reviewed and she had elevated T4, depressed TSH and elevated T3. Given similar symptoms including palpitations I thought she might have mild hyperthyroidism. According to some of the data this is not necessarily abnormal in a patient in the normal lab testing values need to be adjusted during . Additionally women who have hyperemesis gravidarum typically have elevated hCG and consequently it is more common for them to have mild elevation of their thyroid function studies. Clinically Comment based on this data, I doubt this patient has hyperthyroidism. The case was discussed with MANAGER BANQUET automation technician who already knows about this patient and agrees with her plan to discharge her to home. Patient was given 1 L of saline her heart rates in the 90s she looks and feels better. Disposition: To home Clinical impression: 1. Hyperemesis gravidarum 2. Elevation of thyroid function studies-doubt hyperthyroidism 3. PICC line pain no evidence of any abnormality-continue use Departure - Departure Disposition: 01 Home, Self Care Clinical Impression: Hyperemesis affecting , antepartum, Hyperemesis gravidarum Condition: Good Instructions: ED Preg Morning Sickness Follow-Up: Sai Guzman MD [Provider Admit Priv/Credential] -
--- NOTE | 2016-09-07 21:06 | XRAY Preliminary Report ---
Exam: XR Chest 2 View PA/LAT IMPRESSION: Stable right PICC, otherwise unremarkable 2-view chest radiography. [facility] SITE ID: [id number]
--- NOTE | 2016-09-07 21:08 | XRAY Report ---
EXAM: CHEST RADIOGRAPHY EXAM DATE: 09/07/2016 08:12 PM. CLINICAL HISTORY: Chest pain post picc. COMPARISON: None. TECHNIQUE: 2 views. FINDINGS: Lungs/Pleura: No focal opacities evident. No pleural effusion. No pneumothorax. Normal volumes. Mediastinum: Heart and mediastinal contours are unremarkable. Other: Stable right PICC. IMPRESSION: Stable right PICC, otherwise unremarkable 2-view chest radiography. [facility] Referring Provider Line: [phone] SITE ID: [id number]
[2016-09-07 21:49] LABS: BILIRUBIN,URINE NEGATIVE (NEGATIVE)
[2016-09-07 21:50] LABS: UA CHARGE (STRIP ONLY) YES; UR CULTURE IF IND NOT INDICATED
[2016-09-07 22:00] VITALS: BP 116/74
== END 2016-09-07 22:29 | disposition home or self-care (01) ==
LOC: ED 18:12
DX: O21.0 Mild hyperemesis gravidarum (principal); R79.89 Other specified abnormal findings of blood chemistry; O99.511 Diseases of the respiratory system complicating pregnancy, first trimester; J45.909 Unspecified asthma, uncomplicated; Z3A.14 14 weeks gestation of pregnancy
CPT/HCPCS: 36415; 71020; 81001; 81003; 84481; 87086; 93005; 96360; 99283; 99284